=== PATIENT | male | born 1980 | race Caucasian/White ===

== ENCOUNTER 2017-03-28 21:33 | Emergency (ER) | payer OTHER ==
[2017-03-28 21:40] VITALS: BP 139/80; PULSE 88; RESP 18; TEMP 98; O2SAT 99
--- NOTE | 2017-03-28 22:30 | ED PDOC ---
HPI: Male Pain Time Seen by Provider: 03/28/17 21:35 Chief Complaint (Nursing): Male Genitourinary Chief Complaint (Provider): Male Genitourinary History Per: Patient History/Exam Limitations: no limitations Onset/Duration Of Symptoms: Hrs (x1) Current Symptoms Are (Timing): Still Present Additional Complaint(s): Malissa Fitzpatrick is a 36 year old male who presents to the emergency department with a complaint of scrotal pain associated with burning sensation status post shaving and using antibacterial soup 1 hour prior to arrival. pt denies urethral dischrage, no dysuria, no vesicles PMD: none provided Past Medical History Reviewed: Historical Data, Nursing Documentation, Vital Signs Vital Signs: Last Vital Signs Temp 98 F 03/28/17 21:37 Pulse 88 03/28/17 21:37 Resp 18 03/28/17 21:37 BP 139/80 03/28/17 21:37 Pulse Ox 99 03/28/17 21:37 - Medical History Other PMH: dilated cardiomyopathy - Surgical History Other surgeries: mammary glands removed - Family History Family History: States: Unknown Family Hx - Social History Current smoker - smoking cessation education provided: No Alcohol: None Drugs: Methamphetamine (jonathan) - Immunization History Hx Tetanus Toxoid Vaccination: Yes Hx Influenza Vaccination: No Hx Pneumococcal Vaccination: No - Home Medications Home Medications: Ambulatory Orders Medication Instructions Recorded No Known Home Med [No Known Home 08/26/13 Med] - Allergies Allergies/Adverse Reactions: Allergies Allergy/AdvReac Type Severity Reaction Status Date / Time No Known Allergies Allergy Unverified 08/26/13 21:30 Review of Systems ROS Statement: Except As Marked, All Systems Reviewed And Found Negative Genitourinary Male: Positive for: Scrotal Pain (with burning sensation) Physical Exam - Reviewed Nursing Documentation Reviewed: Yes - Physical Exam Appears: Positive for: Well, Non-toxic Head Exam: Positive for: ATRAUMATIC Skin: Positive for: Normal Color, Warm, Dry Gastrointestinal/Abdominal: Positive for: Soft. Negative for: Tenderness Male Genital Exam: Positive for: normal genitalia (small amount of whitish substance over scrotal area consistent with fungal infection. no vesicles noted. no urethral dischareg), other (community relations specialist Evangelina PCT) - ECG O2 Sat by Pulse Oximetry: 99 (RA) Pulse Ox Interpretation: Normal Medical Decision Making Medical Decision Making: Initial Impression: Scrotal pain likely fungal infection US tescticles no torsion pt made aware that needs to follow up with primary doctor/urologist (referral given)for further evaluation and workup pt agreeable to plan Initial Plan: * US testes * Lotrimin 1% Scribe Attestation: Documented by Heaven Farrell, acting as a scribe for Pema Bland MD. Provider Scribe Attestation: All medical record entries made by the Scribe were at my direction and personally dictated by me. I have reviewed the chart and agree that the record accurately reflects my personal performance of the history, physical exam, medical decision making, and the department course for this patient. I have also personally directed, reviewed, and agree with the discharge instructions and disposition. Disposition - Clinical Impression Clinical Impression: Fungal infection - Patient ED Disposition Is Patient to be Admitted: No Counseled Patient/Family Regarding: Studies Performed, Diagnosis, Need For Followup - Disposition Referrals: [facility] [Outside] Abimael Torre MD [Staff Provider] - Disposition: Routine/Home Disposition Time: 23:00 Condition: IMPROVED Additional Instructions: follow up with urologist for resolution of symptoms return to the ED with any worsening or concerning symptoms Instructions: Antifungals (On the skin) Forms: [employer] (Micronesian)
--- NOTE | 2017-03-28 23:33 | US ---
EXAM: US Scrotum CLINICAL HISTORY: 36 years old, male; Pain; Scrotum pain; Prior surgery; Surgery date: 6+ months; Surgery type: As per pt. Surgery for varicocele; Additional info: Scrotal pain TECHNIQUE: Real-time ultrasound of the scrotum with color Doppler and image documentation. COMPARISON: No relevant prior studies available. FINDINGS: Right testicle: No mass. No torsion. Left testicle: No mass. No torsion. Epididymides: Unremarkable as visualized. Scrotum: Unremarkable. IMPRESSION: No sonographic evidence of testicular torsion.
== END 2017-03-28 23:42 | disposition home or self-care (01) ==
LOC: H.ER 21:33
DX: B35.6 Tinea cruris (principal); I42.0 Dilated cardiomyopathy

== ENCOUNTER 2018-10-20 02:00 | Emergency (ER) | payer OTHER ==
[2018-10-20 02:16] VITALS: RESP 18; TEMP 98
--- NOTE | 2018-10-20 02:42 | ED PDOC ---
HPI: SOB/CHF/COPD Time Seen by Provider: 10/20/18 02:18 Chief Complaint (Nursing): Shortness Of Breath Chief Complaint (Provider): Shortness Of Breath History Per: Patient History/Exam Limitations: no limitations Onset/Duration Of Symptoms: Days Current Symptoms Are (Timing): Still Present Additional Complaint(s): 38 y/o American male transitioning into a female with a PMHx of CHF and Cardiomyopathy presents to the ED for evaluation of possibly worsening CHF. Patient reports of developing a 35 pound weight gain over the past two months. Patient is concerned for worsening CHF. Patient notes of taking 100 mg of Spironolactone daily. Patient states he is normally supposed to take 25 mg daily but is taking 100 mg for anti androgen effect. 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 Patient is requesting a Cardiac MRI and Echocardiogram. Patient additionally reports of developing mild shortness of breath with exertion. Patient states he is mostly concerned about lower leg extremity swelling. PMD: no provider Past Medical History Reviewed: Historical Data, Nursing Documentation, Vital Signs Vital Signs: Last Vital Signs Temp 98 F 10/20/18 02:11 Pulse 86 10/20/18 02:11 Resp 18 10/20/18 02:11 BP 107/58 L 10/20/18 02:11 Pulse Ox 100 10/20/18 02:11 - Medical History PMH: CHF Other PMH: cardiomyopathy - Surgical History Surgical History: No Surg Hx - Family History Family History: States: Unknown Family Hx - Immunization History Hx Tetanus Toxoid Vaccination: Yes Hx Influenza Vaccination: No Hx Pneumococcal Vaccination: No - Home Medications Home Medications: Ambulatory Orders Medication Instructions Recorded No Known Home Med 08/26/13 - Allergies Allergies/Adverse Reactions: Allergies Allergy/AdvReac Type Severity Reaction Status Date / Time No Known Allergies Allergy Unverified 08/26/13 21:30 Review of Systems ROS Statement: Except As Marked, All Systems Reviewed And Found Negative Constitutional: Positive for: Other (weight gain) Respiratory: Positive for: SOB with Exertion Musculoskeletal: Positive for: Leg Pain (lower leg swelling) Physical Exam - Reviewed Nursing Documentation Reviewed: Yes Vital Signs Reviewed: Yes - Physical Exam Appears: Positive for: No Acute Distress Head Exam: Positive for: ATRAUMATIC, NORMOCEPHALIC Skin: Positive for: Normal Color, Warm, Dry Eye Exam: Positive for: Normal appearance, EOMI, PERRL Neck: Positive for: Normal, Supple Cardiovascular/Chest: Positive for: Regular Rate, Rhythm. Negative for: Murmur Respiratory: Positive for: Normal Breath Sounds. Negative for: Respiratory Distress Gastrointestinal/Abdominal: Positive for: Normal Exam, Soft. Negative for: Tenderness Extremity: Positive for: Normal ROM, Swelling (2+ EDEMA TO THE LOWER EXTREMITIES) Neurological/Psych: Positive for: Awake, Alert, Oriented (x3) - Laboratory Results Result Diagrams: 10/20/18 02:35 10/20/18 02:35 - ECG O2 Sat by Pulse Oximetry: 100 (RA) Pulse Ox Interpretation: Normal Medical Decision Making Medical Decision Making: Time: 218 Impression: 38 y/o male with lower extremity edema, in setting of known CHF and cardiomyopathy Plan: -- EKG -- B-Type Natriuretic -- CMP -- Troponin I -- ED Urine Dipstick -- CBC with Differentials -- CXR Portable -- Heplock Insertion -- Urinalysis -- Patient informed that Echocardiogram and Cardiac MRI are not available at this hour on a Sunday in the ED. -- Patient agreeable with blood work and CXR Time: 343 -- Labs demonstrate no clinically significant abnormality. CXR demonstrates no active disease. -- Provider discussed ideology of weight gain and lower leg swelling likely related to hormonal anti androgen affects of medication. Patient to follow up with his gender reassignment specialist for further management. Scribe Attestation: Documented by Clarke Rosario, acting as a scribe Isi Moon MD. Provider Scribe Attestation: All medical record entries made by the Scribe were at my direction and personally dictated by me. I have reviewed the chart and agree that the record accurately reflects my personal performance of the history, physical exam, medical decision making, and the department course for this patient. I have also personally directed, reviewed, and agree with the discharge instructions and disposition. Disposition - Clinical Impression Clinical Impression: Edema - Patient ED Disposition Is Patient to be Admitted: No Counseled Patient/Family Regarding: Studies Performed, Diagnosis, Need For Followup - Disposition Disposition: Routine/Home Disposition Time: 03:44 Condition: STABLE Instructions: Dependent Edema (DC), Swelling Forms: [employer] (Mongolian)
[2018-10-20 02:46] LABS: BASO # 0.1 K/uL (0.0-0.2); BASO % 0.8 % (0.0-2.0); EOS # 0.3 K/uL (0.0-0.7); EOS % 2.6 % (0.0-4.0); HEMOGLOBIN 12.1 g/dL (12.0-18.0); LYMPH # 3.6 K/uL (1.0-4.3); LYMPH % 30.7 % (20.0-40.0); MEAN CELL VOLUME 91.8 fl (80.0-94.0); MEAN CORPUSCULAR HEMOGLOBIN 30.8 pg (27.0-31.0); MEAN CORPUSCULAR HGB CONC 33.6 g/dL (33.0-37.0); MONO # 0.8 K/uL (0.0-0.8); MONO % 6.9 % (0.0-10.0); NRBC % 0.1 % (0.0-0.0); RBC 3.93 Mil/uL (4.40-5.90); RED CELL DISTRIBUTION WIDTH 12.1 % (11.5-14.5); WHITE BLOOD COUNT 11.8 K/uL (4.8-10.8)
[2018-10-20 02:56] LABS: ALB/GLOB RATIO 1.3 (1.0-2.1); ALBUMIN 3.9 g/dL (3.5-5.0); ALT/SGPT 32 U/L (21-72); AST/SGOT 28 U/L (17-59); BLOOD UREA NITROGEN 20 mg/dl (9-20); GFR NON-AFRICAN AMERICAN > 60
[2018-10-20 03:08] LABS: B-TYPE NATRIURETIC PEPTIDE 55.2 pg/ml (0-450)
[2018-10-20 03:53] LABS: SQUAMOUS EPITHIAL 1 /hpf (0-5); URINE BILIRUBIN NEGATIVE (NEGATIVE); URINE BLOOD NEGATIVE (NEGATIVE); URINE CLARITY CLEAR (Clear); URINE COLOR YELLOW (YELLOW); URINE GLUCOSE (UA) NEG (NEGATIVE); URINE LEUKOCYTE ESTERASE NEG Leu/uL (Negative); URINE PROTEIN NEGATIVE (NEGATIVE); URINE UROBILINOGEN 0.2-1.0 mg/dL (0.2-1.0)
[2018-10-20 04:29] VITALS: BP 142/78; PULSE 85; O2SAT 99
--- NOTE | 2018-10-20 10:43 | RAD ---
Date of service: 10/20/2018 HISTORY: chest pain COMPARISON: No prior. TECHNIQUE: 1 view obtained. FINDINGS: LUNGS: No active pulmonary disease. PLEURA: No significant pleural effusion identified, no pneumothorax apparent. CARDIOVASCULAR: No aortic atherosclerotic calcification present. Normal cardiac size. No pulmonary vascular congestion. OSSEOUS STRUCTURES: No significant abnormalities. VISUALIZED UPPER ABDOMEN: Normal. OTHER FINDINGS: None. IMPRESSION: No active disease.
--- NOTE | 2018-10-20 16:34 | CARD ---
APPROVED REPORT Date of service: 10/20/2018 EKG Measurement Heart [id number] NM [id number] <Conclusion> Normal sinus rhythm Normal ECG
== END 2018-10-20 04:00 | disposition home or self-care (01) ==
LOC: H.ER 02:00
DX: R60.0 Localized edema (principal); I42.9 Cardiomyopathy, unspecified; J44.9 Chronic obstructive pulmonary disease, unspecified

== ENCOUNTER 2018-12-18 18:08 | Emergency (ER) | payer OTHER ==
[2018-12-18 18:26] VITALS: RESP 16; O2SAT 99
[2018-12-18] MEDS ORDERED: Oxycodone/Acetaminophen 5/325 mg Tab PO STA (20:12)
--- NOTE | 2018-12-18 21:12 | ED PDOC ---
Upper Extremity Pain/Injury Time Seen by Provider: 12/18/18 18:41 Chief Complaint (Nursing): Upper Extremity Problem/Injury Chief Complaint (Provider): Right Hand and Wrist Pain History Per: Patient History/Exam Limitations: no limitations Onset/Duration Of Symptoms: Days (x1 week) Current Symptoms Are (Timing): Still Present Additional Complaint(s): 38 year old male presents to the ED sent from Dr. Mcgill for evaluation of a splint placement. Patient was seen by Dr. Mcgill today for follow up secondary to a fracture in his right arm that was diagnosed one week prior at a [place] hospital s/p accidentally injuring the arm while intoxicated. Patient states he is unsure exactly how it happened, but knows that he fell on to the arm, and is not sure where the fracture is exactly, only knows he has pain in his wrist and hand. Patient has a sugar-tong splint placed to the right arm and notes swelling to the hand and fingers. Otherwise, denies numbness and tingling. Past Medical History Reviewed: Historical Data, Nursing Documentation, Vital Signs Vital Signs: Last Vital Signs Temp 98.4 F 12/18/18 18:25 Pulse 90 12/18/18 18:25 Resp 16 12/18/18 18:25 BP 110/80 12/18/18 18:25 Pulse Ox 99 12/18/18 18:25 Primary Care Provider: Josiah Mcgill - Medical History PMH: CHF - Surgical History Surgical History: No Surg Hx - Family History Family History: States: Unknown Family Hx - Social History Current smoker - smoking cessation education provided: No Alcohol: None Drugs: Other (admits substance use, did not specify) - Immunization History Hx Tetanus Toxoid Vaccination: Yes Hx Influenza Vaccination: No Hx Pneumococcal Vaccination: No - Home Medications Home Medications: Ambulatory Orders Medication Instructions Recorded Ibuprofen [Motrin Tab] 800 mg PO Q6H PRN #20 tab 12/18/18 - Allergies Allergies/Adverse Reactions: Allergies Allergy/AdvReac Type Severity Reaction Status Date / Time No Known Allergies Allergy Verified 12/18/18 18:32 Review of Systems ROS Statement: Except As Marked, All Systems Reviewed And Found Negative Musculoskeletal: Positive for: Hand Pain (right wrist and hand pain) Neurological: Negative for: Numbness (or tingling) Physical Exam - Reviewed Nursing Documentation Reviewed: Yes Vital Signs Reviewed: Yes - Physical Exam Appears: Positive for: No Acute Distress Head Exam: Positive for: ATRAUMATIC Skin: Positive for: Normal Color, Warm Eye Exam: Positive for: Normal appearance Neck: Positive for: Normal Cardiovascular/Chest: Negative for: Bradycardia, Tachycardia Respiratory: Negative for: Accessory Muscle Use, Respiratory Distress Pulses-Radial (R): 2+ Extremity: Positive for: Capillary Refill (less than 2 seconds), Swelling (to right hand and fingers). Negative for: Normal ROM (sugar-tong splint in place to right arm, but pt with full ROM of fingers ), Tenderness (to fingers of right hand) Neurological/Psych: Positive for: Awake, Alert, Oriented - ECG O2 Sat by Pulse Oximetry: 99 Medical Decision Making Medical Decision Making: Time: 1900 Initial Impression: visit in light of recent fracture diagnosis Initial Plan: --Right forearm XR 2011 Right forearms XRs showing no appreciable fracture. Splint removed. Patient has significant edema to hand / digits and tenderness over metacarpals. Motrin and Percocet tab ordered for pain control. XRs of right hand and wrist ordered. (+) displaced proximal metacarpal fx. Splint placed. Discussed f/u with hand specialist. Scribe Attestation: Documented by Loren Collins, acting as a scribe for Charlette Doran PA-C Provider Scribe Attestation: All medical record entries made by the Scribe were at my direction and personally dictated by me. I have reviewed the chart and agree that the record accurately reflects my personal performance of the history, physical exam, medical decision making, and the department course for this patient. I have also personally directed, reviewed, and agree with the discharge instructions and disposition. Disposition - Clinical Impression Clinical Impression: Fracture, metacarpal - Patient ED Disposition Is Patient to be Admitted: No Counseled Patient/Family Regarding: Diagnosis, Need For Followup - Disposition Referrals: Alin Stanley MD [Medical Doctor] - Disposition: Routine/Home Disposition Time: 21:44 Condition: GOOD Prescriptions: Ibuprofen [Motrin Tab] 800 mg PO Q6H PRN #20 tab PRN Reason: Pain Instructions: Hand Fracture (DC) Forms: [employer] (Barbadian)
[2018-12-18 22:31] VITALS: BP 118/74; PULSE 84; TEMP 98.2
--- NOTE | 2018-12-19 13:21 | RAD ---
Date of service: 12/18/2018 PROCEDURE: Right Wrist Radiographs. HISTORY: pain, possible fx COMPARISON: None. TECHNIQUE: Three views obtained. FINDINGS: BONES: Intra-articular fracture base of the 3rd metacarpal. There is subluxation versus dislocation at the 3rd CMC articulation. There is no other definite fracture identified. There is dystrophic calcification, smoothly corticated, dorsal to the CMC articulation, possibly the result of old injury. There is also some curvilinear calcification, likely dystrophic, seen along the radial aspect of the proximal 3rd metacarpal diaphysis. This could also represent a displaced fracture fragment. JOINTS: See above. The remaining joint spaces and articular surfaces are preserved. SOFT TISSUES: Marked soft tissue swelling over the dorsal aspect of the hand and wrist. OTHER FINDINGS: None. IMPRESSION: Mildly displaced oblique intra-articular fracture at the base of the 3rd metacarpal with subluxation or dislocation at the CMC 3 articulation. Probable dystrophic calcification in the dorsal soft tissues at the level of the CMC joints. Soft tissue swelling.
--- NOTE | 2018-12-19 13:23 | RAD ---
PROCEDURE: Right Hand Radiographs. HISTORY: pain, possible fx COMPARISON: None. TECHNIQUE: 3 views obtained. FINDINGS: BONES: Displaced fracture base of 3rd metacarpal, likely intra-articular at the CMC 3 articulation. Probable dorsal displacement of the distal fragment consistent with dislocation or subluxation. There is calcifications seen dorsal to the carpal bones, likely dystrophic calcification possibly from prior trauma. Please see report of right wrist x-ray. No other fracture identified. JOINTS: Dislocation/subluxation at CMC 3. The remaining joint spaces and articular surfaces are intact. SOFT TISSUES: Dorsal soft tissue swelling. OTHER FINDINGS: None. IMPRESSION: Intra-articular fracture with subluxation/dislocation at CMC 3. No other acute abnormality.
--- NOTE | 2018-12-19 14:35 | RAD ---
PROCEDURE: Radiographs of the Right Forearm HISTORY: pain, fx COMPARISON: None available. TECHNIQUE: Frontal and lateral views obtained. 2 views obtained. FINDINGS: BONES: Bony detail partially obscured by overlying plaster splint. Previously noted fracture at base of 3rd metacarpal is poorly demonstrated on this is evaluation of the forearm. No other fracture is identified. JOINT SPACES: Unremarkable. OTHER FINDINGS: None. IMPRESSION: No definite fracture demonstrated.
== END 2018-12-18 22:32 | disposition home or self-care (01) ==
LOC: H.ER 18:08
DX: S62.302G Unspecified fracture of third metacarpal bone, right hand, subsequent encounter for fracture with delayed healing (principal)